=== PATIENT | male | born 1990 | race Caucasian/White ===

== ENCOUNTER 2021-08-28 18:21 | Emergency (ER) | payer SELFPAY ==
[~2021-08-28] VITALS: Ht 193 cm; Wt 83.9 kg
[2021-08-28] MEDS ORDERED: HYDR-4303 PO (21:26)
[2021-08-28 22:00] VITALS: BP 145/87
== END 2021-08-29 03:02 | disposition home or self-care (01) ==
LOC: ER 18:25
DX: S82.142A Displaced bicondylar fracture of left tibia, initial encounter for closed fracture (principal); I10 Essential (primary) hypertension; F41.9 Anxiety disorder, unspecified; W01.0XXA Fall on same level from slipping, tripping and stumbling without subsequent striking against object, initial encounter; Y93.01 Activity, walking, marching and hiking; Y92.89 Other specified places as the place of occurrence of the external cause; Y99.8 Other external cause status
CPT/HCPCS: 73564-TC; 73700-TC